=== PATIENT | male | born 1935 | race Caucasian/White ===

== ENCOUNTER 2018-09-18 08:16 | Day surgery (SDC) | payer MEDICARE, OTHER ==
[2018-09-18] MEDS ORDERED: Lactated Ringer's 500 ML IV ONE ×2 (09:23→11:36)
[2018-09-18 09:39] VITALS: BMI 28.7
[2018-09-18 09:40] VITALS: RESP 16
[2018-09-18] MEDS ORDERED: Etomidate 20 mg/10ml Inj IV ONE (10:07)
[2018-09-18] MEDS ORDERED: Propofol 10 mg/ml Inj (20 ML) ONE (10:08)
[2018-09-18] MEDS ORDERED: Midazolam 2 MG/2 ML VIAL ONE (10:09)
[2018-09-18 11:43] VITALS: TEMP 97.8
[2018-09-18 11:53] VITALS: BP 127/58; PULSE 63; O2SAT 99
== END 2018-09-18 13:52 | disposition home or self-care (01) ==
LOC: H.ENDO 08:16
PROVIDERS: ATTEND Internal Medicine Gastroenterology
DX: D12.3 Benign neoplasm of transverse colon (principal); K57.30 Diverticulosis of large intestine without perforation or abscess without bleeding; K64.8 Other hemorrhoids; R19.5 Other fecal abnormalities; Z88.0 Allergy status to penicillin
CPT/HCPCS: 45380; 88305; J2001; J2250; J2704; J3010; J7120